=== PATIENT | male | born 1940 | race Caucasian/White ===

== ENCOUNTER 2019-01-26 10:51 | Day surgery (SDC) | payer MEDICARE, BC ==
[~2019-01-26] VITALS: Ht 177.8 cm; Wt 74.9 kg
[2019-01-26] VITALS (7 sets, daily range): BP systolic 128–142; BP diastolic 57–78; PULSE 52–85; TEMP 97.4–98.7
[~2019-01-26 10:51] MED LIST: ASPIRIN 81M81 MG/TA2 PO; OMEGA 31000 MG PO; TOPROL XL 25MG25 MG PO
[2019-01-26] MEDS ORDERED: PRILOSEC 20MG20 MG PO (11:35)
[2019-01-26] MEDS ORDERED: NORCO 325 MG-51 TAB PO (11:35)
[2019-01-26] MEDS ORDERED: ZANTAC 150MG T150 MG PO (11:35)
[2019-01-26] MEDS ORDERED: GARLIC100 MG PO (11:36)
[2019-01-26] MEDS ORDERED: FLAXSEED OIL1000 MG PO (11:36)
[2019-01-26 12:04] LABS: ALBUMIN 3.7 gm/dL (3.5-5.0); BILIRUBIN,TOTAL 1.1 mg/dL (0.0-1.0); CALCIUM 10.3 mg/dL (8.4-10.2); CREATININE, serum 1.03 (0.66-1.25); POTASSIUM 4.6 mmol/L (3.4-5.0); TOTAL PROTEIN 7.5 gm/dL (6.4-8.2)
--- NOTE | 2019-01-26 15:20 | NUR ---
Patient returns to room 3 per cart and arouses to verbal stimuli. Incisions x4 on abdomen from lap sites covered with deshpande set dressing and are clean and dry. IV fluids infusing #20G LH. Siderails up x2 and call light in reach. Family in room. Allowed to rest and denies pain or nausea at present time.
--- NOTE | 2019-01-26 15:35 | NUR ---
Patient is taking water and denies pain or nausea.
--- NOTE | 2019-01-26 15:50 | NUR ---
Room air sats 95%. Resting and denies pain.
[2019-01-26] MEDS ORDERED: MOTRIN 600600 MG/TAB PO (15:55)
--- NOTE | 2019-01-26 16:05 | NUR ---
Taking water and muffin. Warm blanket on the right shoulder for post op pain. IV fluids infusing and denies nausea.
--- NOTE | 2019-01-26 16:20 | NUR ---
Tolerates muffin and family at side.
--- NOTE | 2019-01-26 16:30 | NUR ---
Assisted up to the bathroom and voids. Tolerates activity well. States that he is continuing to have right shoulder discomfort. Offered pain pill and agrees to take [place] prior to discharge and for ride home.
--- NOTE | 2019-01-26 16:42 | NUR ---
Medicated with [place] 5mg one tab for pain rating at 3/10. States that he is having right shoulder discomfort.
--- NOTE | 2019-01-26 16:45 | NUR ---
Given dismissal instructions for home cares for post lap aida. Instructed to take the pain pills that he already has at home or he may take Motrin 600mg po every 6 hours as needed. States that the the right shoulder is feeling better since he has been up moving around.
--- NOTE | 2019-01-26 16:51 | NUR ---
Patient dismissed to home per private vehicle driven by son and taken to the front door per wheelchair by RN and assisted into vehicle.
== END 2019-01-26 16:51 | disposition home or self-care (01) ==
LOC: SDCO 10:51
PROVIDERS: Surgery
DX: K80.12 Calculus of gallbladder with acute and chronic cholecystitis without obstruction (principal); E11.9 Type 2 diabetes mellitus without complications; I10 Essential (primary) hypertension; K21.9 Gastro-esophageal reflux disease without esophagitis; E78.5 Hyperlipidemia, unspecified; Z79.899 Other long term (current) drug therapy; Z79.82 Long term (current) use of aspirin; K80.00 Calculus of gallbladder with acute cholecystitis without obstruction
CPT/HCPCS: J0360; J0690; J1100; J1885; J2405; J2704; J2710; J3010; J7120; Q9967